=== PATIENT | male | born 1960 | race Caucasian/White ===

== ENCOUNTER 2021-08-07 05:56 | Day surgery (SDC) | payer OTHER ==
[2021-08-07] VITALS (16 sets, daily range): BP systolic 126–168; BP diastolic 67–96; PULSE 53–72; TEMP 97.5–97.8
[~2021-08-07] VITALS: Wt 100.4 kg
[2021-08-07 06:38] LABS: HEMOGLOBIN 16.7 g/dl (13.5-18.0); MEAN CELL VOLUME 92 fl (80.0-100.0); MEAN CORPUSCULAR HEMOGLOBIN 31 pg (27-31); MEAN CORPUSCULAR HGB CONC 34 g/dl (33.0-37.0); MEAN PLATELET VOLUME 8.3 fl (7.4-10.4); PLATELET COUNT 237 K/mm3 (130-400); RED BLOOD COUNT 5.32 M/mm3 (4.20-5.60); REDCELL DISTRIBUTION WIDTH-CV 12.6 % (11.5-14.5)
[2021-08-07] MEDS ORDERED: ASPIRIN 81M81 MG/TA2 PO (06:40)
[2021-08-07] MEDS ORDERED: NITROSTAT0.4 MG/TAB SL (06:42)
[2021-08-07] MEDS ORDERED: PRIL40 PO (06:44)
[2021-08-07 06:50] LABS: CALCIUM 8.9 mg/dL (8.4-10.2); CREATININE, serum 1.02 mg/dL (0.72-1.25); INR 1.1 (0.8-3.0); POTASSIUM 4.7 mmol/L (3.5-4.5); PROTHROMBIN TIME 12.9 SECONDS (9.7-12.8)
[2021-08-07 06:52] LABS: PARTIAL THROMBOPLASTIN TIME 30.4 SECONDS (26.0-37.0)
--- NOTE | 2021-08-07 08:26 | NUR ---
pt to procedure,report to JARED Maldonado.
--- NOTE | 2021-08-07 08:43 | NUR ---
SEE MERGE DOCUMENTATION FOR MEDICATION ADMINISTRATION AND INTRA/POST PROCEDURE SEDATION ASSESSMENTS.
--- NOTE | 2021-08-07 10:43 | NUR ---
report received pt transferred to inpt room post procedure.
--- NOTE | 2021-08-07 18:00 | NUR ---
Patient admitted to room 308 following heart cath. Admission assessment completed. Pharmacy, medications, and allergies reviewed. Right radial compression band on with 14 mls of air. Patient attached to dynamap for post op vitals. VSS. Patient A&O. Air released per protocol. No bleeding at site. Site soft and free from hematoma. Dressing placed and is clean, dry, and intact. Patient denies any pain, discomfort, SOA, or further needs at this time. Call light in reach.
--- NOTE | 2021-08-07 23:10 | NUR ---
Denies pain and discomfort. Right radial heart cath site without hematoma. Bandaid CDI. Wearing arm board to help protect site. Voices no questions, needs or concerns. Call light within reach.
[2021-08-08 04:57] VITALS: BP 123/74; PULSE 52; TEMP 97.6
--- NOTE | 2021-08-08 05:43 | NUR ---
Patient has not voiced any complaints of pain or discomfort. In bed with call light within reach.
[2021-08-08 07:35] VITALS: BP 136/78; PULSE 56; TEMP 97.9
[2021-08-08] MEDS ORDERED: LIPITOR20 MG PO (09:08)
[2021-08-08] MEDS ORDERED: BRILINTA90 MG PO (09:08)
--- NOTE | 2021-08-08 09:29 | NUR ---
Assessmet completed, alert/oriented, vital signs stable, denies any pain or discomfort, reports he had a good night, right wrist/ radial access site is soft and non-tender no bleeding or hematome/ 2+ radial pulses, heart RRR, lungs CTA/ no resp.difficulty noted, he is tolerating Po intake, present in the room, hoping for discharge home today, morning meds given
--- NOTE | 2021-08-08 10:50 | NUR ---
Discussed discharge orderes with patient and his , instructed to follow up with Cards as instructed in 2 week time frame, discussed new meds/ scripts and education provided on Brillinta and Lipitor, referral faxed to cardiac rehab and discussed with patient, [place] zulu[place], leaving with his , MARC escorted them out the door
== END 2021-08-08 10:56 | disposition home or self-care (01) ==
LOC: COL.CAR 05:56 → MEDICAL 10:54 → COL.CAR 08-08 10:56
PROVIDERS: Internal Medicine Cardiovascular Disease
DX: I25.10 Atherosclerotic heart disease of native coronary artery without angina pectoris (principal); I21.4 Non-ST elevation (NSTEMI) myocardial infarction; E78.5 Hyperlipidemia, unspecified; Z87.891 Personal history of nicotine dependence
CPT/HCPCS: OP; C1725; C1769; C1874; C1887; C9600; J1644; J2250; J3010; J7030

== ENCOUNTER 2021-08-10 05:00 | Emergency (ER) | payer OTHER ==
[~2021-08-10] VITALS: Ht 182.9 cm; Wt 112.7 kg
[~2021-08-10 05:00] MED LIST: ASPIRIN 81M81 MG/TA2 PO; BRILINTA90 MG PO; LIPITOR20 MG PO; NITROSTAT0.4 MG/TAB SL; PRIL40 PO
[2021-08-10 05:04] VITALS: TEMP 97.7
[2021-08-10 05:23] LABS: BASO # 0.1 K/mm3 (0.0-0.2); BASO % 0.6 % (0.0-2.0); EOS # 0.1 K/mm3 (0.0-0.7); EOS % 1.4 % (0.0-4.0); GRAN # 5.3 K/mm3 (1.4-6.5); GRAN % 61.9 % (42.2-75.2); HEMATOCRIT 50.9 % (42.0-52.0); HEMOGLOBIN 17.8 g/dl (13.5-18.0); LYMPH # 2.3 K/mm3 (1.2-3.4); LYMPH % 27.1 % (20.0-51.0); MEAN CELL VOLUME 91 fl (80.0-100.0); MEAN CORPUSCULAR HEMOGLOBIN 32 pg (27-31); MEAN CORPUSCULAR HGB CONC 35 g/dl (33.0-37.0); MEAN PLATELET VOLUME 8.1 fl (7.4-10.4); MONO # 0.7 K/mm3 (0.1-0.6); MONO % 8.5 % (1.7-9.3); PLATELET COUNT 286 K/mm3 (130-400); RED BLOOD COUNT 5.59 M/mm3 (4.20-5.60); REDCELL DISTRIBUTION WIDTH-CV 12.6 % (11.5-14.5)
[2021-08-10 05:41] LABS: ALBUMIN 4.1 gm/dL (3.4-4.8); BILIRUBIN,TOTAL 0.9 mg/dL (0.2-1.2); CALCIUM 9.3 mg/dL (8.4-10.2); CREATININE, serum 1.08 mg/dL (0.72-1.25); TOTAL PROTEIN 7.8 gm/dL (6.2-8.1)
[2021-08-10 05:54] LABS: TROPONIN-I 0.047 ng/mL (0.00-0.033)
[2021-08-10 09:35] VITALS: BP 128/92; PULSE 60
== END 2021-08-10 09:35 | disposition home or self-care (01) ==
LOC: COL.ER 05:00
PROVIDERS: Emergency Medicine
DX: R06.00 Dyspnea, unspecified (principal); I25.10 Atherosclerotic heart disease of native coronary artery without angina pectoris; Z87.891 Personal history of nicotine dependence; Z79.82 Long term (current) use of aspirin; Z79.02 Long term (current) use of antithrombotics/antiplatelets

== ENCOUNTER 2021-08-11 08:19 | Emergency (ER) | payer OTHER ==
[~2021-08-11] VITALS: Ht 182.9 cm; Wt 112.7 kg
[2021-08-11 08:30] VITALS: TEMP 97.6
[2021-08-11 09:08] LABS: BASO % 0.5 % (0.0-2.0); EOS # 0.1 K/mm3 (0.0-0.7); EOS % 1.2 % (0.0-4.0); GRAN # 5.9 K/mm3 (1.4-6.5); GRAN % 72.7 % (42.2-75.2); HEMATOCRIT 50.8 % (42.0-52.0); HEMOGLOBIN 17.9 g/dl (13.5-18.0); LYMPH # 1.5 K/mm3 (1.2-3.4); LYMPH % 18.8 % (20.0-51.0); MEAN CELL VOLUME 90 fl (80.0-100.0); MEAN CORPUSCULAR HEMOGLOBIN 32 pg (27-31); MEAN CORPUSCULAR HGB CONC 35 g/dl (33.0-37.0); MONO # 0.5 K/mm3 (0.1-0.6); MONO % 6.4 % (1.7-9.3); PLATELET COUNT 278 K/mm3 (130-400); RED BLOOD COUNT 5.66 M/mm3 (4.20-5.60); REDCELL DISTRIBUTION WIDTH-CV 12.4 % (11.5-14.5)
[2021-08-11 09:10] LABS: INR 1.2 (0.8-3.0); PROTHROMBIN TIME 13.2 SECONDS (9.7-12.8)
[2021-08-11 09:13] LABS: PARTIAL THROMBOPLASTIN TIME 34.6 SECONDS (26.0-37.0)
[2021-08-11 09:32] LABS: ALBUMIN 4.2 gm/dL (3.4-4.8); BILIRUBIN,TOTAL 0.8 mg/dL (0.2-1.2); CALCIUM 9.2 mg/dL (8.4-10.2); CREATININE, serum 1.12 mg/dL (0.72-1.25); POTASSIUM 4.1 mmol/L (3.5-4.5); TOTAL PROTEIN 7.9 gm/dL (6.2-8.1)
[2021-08-11 09:38] LABS: TROPONIN-I 0.029 ng/mL (0.00-0.033)
[2021-08-11 11:49] VITALS: BP 135/92; PULSE 69
== END 2021-08-11 11:49 | disposition home or self-care (01) ==
LOC: COL.ER 08:19
PROVIDERS: Family Medicine
DX: R20.2 Paresthesia of skin (principal); Z87.891 Personal history of nicotine dependence
CPT/HCPCS: Q9967

== ENCOUNTER → 2023-12-01 | Outpatient (CLI) | payer OTHER ==
[~2023-12-01] VITALS: Ht 182.9 cm; Wt 107.5 kg
[2023-12-01 08:10] VITALS: BP 160/92; PULSE 57; TEMP 97.6
[2023-12-01 09:20] VITALS: BP 149/84; PULSE 52
== END ==
LOC: COL.RAD 07:48
DX: J38.3 Other diseases of vocal cords (principal); Z85.21 Personal history of malignant neoplasm of larynx